=== PATIENT | male | born 1980 | race Hispanic/Latino ===

== ENCOUNTER 2019-11-13 08:02 | Emergency (ER) | payer OTHER, SELFPAY ==
--- NOTE | 2019-11-13 09:20 | RAD ---
EXAM: CHEST ONE VIEW HISTORY: Cough with increasing shortness of breath over last week. COMPARISON: None FINDINGS: The cardiac silhouette and pulmonary vasculature is within normal limits. The lungs are clear. The os seous structures are intact. IMPRESSION: No acute cardiopulmonary process. Chest radiographs exhibit low sensitivity for subtle groundglass op acities that can be seen in viral infections.
[2019-11-14 16:02] LABS: SARS-CoV-2 MS2 Positive; SARS-CoV-2 N Gene Positive; SARS-CoV-2 S Gene Positive; SARS-CoV-2 orf1ab Positive
== END 2019-11-13 09:50 | disposition home or self-care (01) ==
LOC: ERS 08:02
DX: U07.1 COVID-19 (principal); J12.89 Other viral pneumonia; F17.220 Nicotine dependence, chewing tobacco, uncomplicated
CPT/HCPCS: 71045; 87635; 93005; U0003